=== PATIENT | female | born 1965 | race Hispanic/Latino ===

== ENCOUNTER → 2019-08-12 | Outpatient (CLI) | payer MEDICAID | END | disposition home or self-care (01) ==

== ENCOUNTER → 2022-04-19 | Outpatient (CLI) | payer MEDICAID ==
[~2022-04-19] MED LIST: ACET325C6 PEG; AMLO-257 PEG; ARIP5TAB13 PEG; FAMO20TA8 PEG; HC2530C TP; HYDR-3421 PEG
== END | disposition home or self-care (01) ==
LOC: RAH 08:14
PROVIDERS: ATTEND Internal Medicine Gastroenterology
DX: R63.30 Feeding difficulties, unspecified (principal); R13.10 Dysphagia, unspecified
CPT/HCPCS: 74230; 92611

== ENCOUNTER 2022-06-26 10:45 | Emergency (ER) | payer MEDICAID ==
[~2022-06-26] VITALS: Ht 154.9 cm; Wt 63.5 kg
[2022-06-26] MEDS ORDERED: DIATR MEGLU/DIATRIZOATE SODIUM 30 ML BOTTLE ONE (12:38)
[2022-06-26 13:55] VITALS: BP 139/85
== END 2022-06-26 14:54 | disposition home or self-care (01) ==
LOC: EDH 10:45
DX: Z43.1 Encounter for attention to gastrostomy (principal); I10 Essential (primary) hypertension; F20.9 Schizophrenia, unspecified; Z79.899 Other long term (current) drug therapy
CPT/HCPCS: 99283; Q9963